=== PATIENT | female | born 1985 | race Caucasian/White ===

== ENCOUNTER 2016-03-14 08:50 | Day surgery (SDC) ==
[2016-03-14] MEDS ORDERED: KEFZOL 1 GM/D5W 50 ML ONE (09:27)
[2016-03-14] MEDS ORDERED: LR 1,000 ML ONE (09:27)
[2016-03-14 09:29] LABS: HEMATOCRIT 42.2 % (37.0-47.0); MCHC 35.5 g/dL (33-37); MCV 84.4 FL (81-99); MPV 9.6 FL (7.4-10.4)
[2016-03-14] MEDS ORDERED: PEPCID ONE (09:46)
[2016-03-14] MEDS ORDERED: REGLAN ONE (09:46)
[2016-03-14 09:50] LABS: AGAP 15; BUN 11 mg/dL (8-22); CALCIUM 9.8 mg/dL (8.8-10.2); CHLORIDE 101 mmol/L (98-107); COSMO 279; POTASSIUM 4.1 mmol/L (3.5-5.1); SODIUM 140 mmol/L (136-145); TCO2 24 mmol/L (25-35)
[2016-03-14 09:55] LABS: INR 1.02; PROTIME 10.8 Seconds (9.2-11.7); PTT 29.1 Seconds (22.0-36.0)
[2016-03-14] MEDS ORDERED: DIPRIVAN 1% ONE (11:24)
[2016-03-14] MEDS ORDERED: TRANSDERM-SCOP ONE (12:09)
[2016-03-14 12:14] VITALS: BP 134/82
--- NOTE | 2016-03-14 14:18 | OPERATIVE NOTE ---
PROCEDURE DATE: 03/14/2016 OPERATION DATE: 03/14/2016. SURGEON: Dr. Raudel Carney. PREOPERATIVE DIAGNOSIS: Left renal stone, left flank pain. PRIMARY PROCEDURE: Left extracorporeal shockwave lithotripsy. INDICATIONS: A 30-year-old female, who presented with abdominal and left flank pain. She underwent GI evaluation. She underwent imaging which revealed 4 mm left renal stone. She desires intervention. FINDINGS: 1500 shocks delivered at frequency of 1.5 hertz with energy settings from 1 until 6, and total fluoroscopy time of 1 minute and 2 seconds. The stone showed excellent fragmentation. DESCRIPTION OF PROCEDURE: After obtaining informed consent, patient brought to the operating room. Preoperative antibiotics and laryngeal mask anesthesia were administered. She was placed in supine position with the lithotripter over her left flank. The stone was easily seen. The above-stated number of shocks were delivered. Then 20 mg of intravenous Lasix were administered. She tolerated the procedure well, was extubated and taken to PACU for further recovery. ESTIMATED BLOOD LOSS: None. COMPLICATIONS: None. DISPOSITION: To PACU, subsequently home with prescriptions for [place] 5 (15) Cipro 250 (6).
[2016-03-14] MEDS ORDERED: XYLOCAINE-MPF 2% ONE (15:51)
[2016-03-14] MEDS ORDERED: DECADRON ONE (15:51)
[2016-03-14] MEDS ORDERED: LASIX ONE (15:51)
[2016-03-14] MEDS ORDERED: ZEMURON ONE (15:51)
== END 2016-03-14 12:25 | disposition home or self-care (01) ==
LOC: OPS 08:50
PROVIDERS: ATTEND Urology
DX: N20.0 Calculus of kidney (principal)
CPT/HCPCS: 80048; 85027; 85610; 85730; J0690; J1100; J1940; J7120